=== PATIENT | female | born 1985 | race Caucasian/White ===

== ENCOUNTER 2017-08-06 18:32 | Emergency (ER) | payer MEDICAID ==
[2017-08-06 21:20] VITALS: BP 131/72
== END 2017-08-06 21:28 | disposition home or self-care (01) ==
LOC: ED 18:32
DX: R51 Headache (principal); R11.0 Nausea
CPT/HCPCS: J1885; J8597; Q0162; Q0163

== ENCOUNTER 2017-12-07 11:56 | Emergency (ER) | payer MEDICAID ==
[~2017-12-07] VITALS: Ht 157.5 cm; Wt 76.7 kg
[2017-12-07 13:24] VITALS: BP 129/88
== END 2017-12-07 13:24 | disposition home or self-care (01) ==
LOC: ED 11:56
DX: G44.209 Tension-type headache, unspecified, not intractable (principal); I10 Essential (primary) hypertension
CPT/HCPCS: 20552; J2001

== ENCOUNTER 2018-03-25 22:36 | Emergency (ER) | payer MEDICAID ==
[~2018-03-25] VITALS: Ht 157.5 cm; Wt 73.9 kg
[2018-03-25 22:47] VITALS: Ht 157.5 cm; Wt 73.9 kg
[2018-03-26 00:21] VITALS: BP 127/106
== END 2018-03-26 00:21 | disposition home or self-care (01) ==
LOC: ED 22:36
DX: G43.909 Migraine, unspecified, not intractable, without status migrainosus (principal)
CPT/HCPCS: J1885; J2765

== ENCOUNTER 2018-10-14 11:10 | Emergency (ER) | payer OTHER ==
[~2018-10-14] VITALS: Ht 157.5 cm; Wt 75.3 kg
[2018-10-14 11:16] VITALS: Ht 157.5 cm; Wt 75.3 kg
[2018-10-14 13:15] VITALS: BP 131/80
== END 2018-10-14 13:15 | disposition home or self-care (01) ==
LOC: ED 11:10
DX: G43.909 Migraine, unspecified, not intractable, without status migrainosus (principal); R11.0 Nausea; H53.149 Visual discomfort, unspecified
CPT/HCPCS: J1885; J2765

== ENCOUNTER 2019-01-13 23:56 | Emergency (ER) | payer OTHER ==
[~2019-01-13] VITALS: Ht 157.5 cm; Wt 71.7 kg
[2019-01-14 00:03] VITALS: Ht 157.5 cm; Wt 71.7 kg
[2019-01-14 01:22] LABS: BASOPHIL % 0.2 % (0-2); PLATELET COUNT 328 x10^3mcL (130-400); RED CELL DISTRIBUTION WIDTH 13.3 % (11.5-14.5)
[2019-01-14 01:24] LABS: CALCIUM 8.6 mg/dL (8.5-10.1); CARBON DIOXIDE 27.3 mmol/L (21-32); CHLORIDE SERUM 105 mmol/L (98-107); CREATININE SERUM 0.7 mg/dL (0.6-1.0); GFR1 > 60 mL/min; GLUCOSE SERUM 127 mg/dL (74-106); POTASSIUM SERUM 3.6 mmol/L (3.5-5.1); SODIUM SERUM 139 mmol/L (136-145)
[2019-01-14 01:25] LABS: T3 TOTAL 0.96 ng/mL
[2019-01-14 01:26] LABS: AMPHETAMINE QUAL UR NONE DETECTED (See below)
[2019-01-14 01:29] LABS: ALBUMIN 3.7 g/dL (3.4-5.0); ALKALINE PHOSPHATASE 101 U/L (46-116); ALT/SGPT 41 U/L (14-59); AST/SGOT 18 U/L (15-37); BILIRUBIN TOTAL 0.12 mg/dL (0.20-1.00); TOTAL PROTEIN, SERUM 7.6 g/dL (6.4-8.2)
[2019-01-14 01:51] LABS: FREE T4 0.84 ng/dL (0.76-1.46); FREE THYROXINE INDEX 2.8 ug/dL (1.4-4.5); T4(THYROXINE) 8.1 ug/dL (4.7-13.3)
[2019-01-14 05:06] VITALS: BP 128/78
== END 2019-01-14 05:06 | disposition home or self-care (01) ==
LOC: ED 23:56
PROVIDERS: Emergency Medicine
DX: R00.2 Palpitations (principal); R55 Syncope and collapse; R42 Dizziness and giddiness; G43.909 Migraine, unspecified, not intractable, without status migrainosus
CPT/HCPCS: 36415; 84439; 85378; Q0092

== ENCOUNTER 2019-01-14 20:24 | Emergency (ER) | payer OTHER ==
[~2019-01-14] VITALS: Ht 157.5 cm; Wt 71.7 kg
[2019-01-14 20:42] VITALS: Ht 157.5 cm; Wt 71.7 kg
[2019-01-14 22:20] LABS: CALCIUM 8.8 mg/dL (8.5-10.1); CHLORIDE SERUM 106 mmol/L (98-107); CREATININE SERUM 0.6 mg/dL (0.6-1.0); GFR1 > 60 mL/min; GLUCOSE SERUM 85 mg/dL (74-106); POTASSIUM SERUM 3.6 mmol/L (3.5-5.1); SODIUM SERUM 142 mmol/L (136-145)
[2019-01-14 22:24] LABS: ALBUMIN 3.6 g/dL (3.4-5.0); ALKALINE PHOSPHATASE 112 U/L (46-116); ALT/SGPT 34 U/L (14-59); AST/SGOT 19 U/L (15-37); BILIRUBIN TOTAL 0.1 mg/dL (0.20-1.00); MAGNESIUM 2.1 mg/dL (1.8-2.4); TOTAL PROTEIN, SERUM 7.3 g/dL (6.4-8.2)
[2019-01-14 23:55] VITALS: BP 127/83
== END 2019-01-14 23:55 | disposition home or self-care (01) ==
LOC: ED 20:24
PROVIDERS: Emergency Medicine
DX: R07.89 Other chest pain (principal); R00.2 Palpitations; G43.909 Migraine, unspecified, not intractable, without status migrainosus
CPT/HCPCS: 36415

== ENCOUNTER 2019-01-18 14:47 | Emergency (ER) | payer OTHER ==
[~2019-01-18] VITALS: Ht 157.5 cm; Wt 71.7 kg
[2019-01-18 14:55] VITALS: Ht 157.5 cm; Wt 71.7 kg
[2019-01-18 16:38] VITALS: BP 128/65
== END 2019-01-18 16:38 | disposition home or self-care (01) ==
LOC: ED 14:47
DX: G43.909 Migraine, unspecified, not intractable, without status migrainosus (principal); R05 Cough
CPT/HCPCS: J1885

== ENCOUNTER 2019-07-21 12:10 | Emergency (ER) | payer OTHER ==
[~2019-07-21] VITALS: Ht 160 cm; Wt 80.3 kg
[2019-07-21 12:20] VITALS: Ht 160 cm; Wt 80.3 kg
[2019-07-21 14:27] VITALS: BP 110/65
== END 2019-07-21 14:27 | disposition home or self-care (01) ==
LOC: ED 12:10
DX: S39.012A Strain of muscle, fascia and tendon of lower back, initial encounter (principal); G43.909 Migraine, unspecified, not intractable, without status migrainosus; X58.XXXA Exposure to other specified factors, initial encounter; Y93.89 Activity, other specified; Y92.89 Other specified places as the place of occurrence of the external cause; Y99.8 Other external cause status

== ENCOUNTER 2019-08-31 17:55 | Emergency (ER) | payer OTHER ==
[~2019-08-31] VITALS: Ht 157.5 cm; Wt 74.4 kg
[2019-08-31 18:05] VITALS: Ht 157.5 cm; Wt 74.4 kg
[2019-08-31 22:44] VITALS: BP 131/84
== END 2019-08-31 22:44 | disposition home or self-care (01) ==
LOC: ED 17:55
DX: R05 Cough (principal); R07.89 Other chest pain; G43.909 Migraine, unspecified, not intractable, without status migrainosus
CPT/HCPCS: J1200; J7613; Q0092

== ENCOUNTER 2020-05-25 03:33 | Emergency (ER) | payer OTHER ==
[~2020-05-25] VITALS: Ht 157.5 cm; Wt 82.6 kg
[2020-05-25 03:39] VITALS: Ht 157.5 cm; Wt 82.6 kg
[2020-05-25 04:27] LABS: BASOPHIL % 0.4 % (0-2); PLATELET COUNT 299 x10^3mcL (130-400); RED CELL DISTRIBUTION WIDTH 12.8 % (11.5-14.5)
[2020-05-25 04:41] LABS: CALCIUM 9.2 mg/dL (8.5-10.1); CARBON DIOXIDE 36.2 mmol/L (21-32); CHLORIDE SERUM 104 mmol/L (98-107); CREATININE SERUM 0.8 mg/dL (0.6-1.0); GFR1 > 60 mL/min; GLUCOSE SERUM 103 mg/dL (74-106); POTASSIUM SERUM 3.7 mmol/L (3.5-5.1); SODIUM SERUM 140 mmol/L (136-145)
[2020-05-25 04:47] LABS: ALBUMIN 3.8 g/dL (3.4-5.0); ALKALINE PHOSPHATASE 86 U/L (46-116); ALT/SGPT 31 U/L (14-59); AST/SGOT 18 U/L (15-37); BILIRUBIN TOTAL 0.33 mg/dL (0.20-1.00); TOTAL PROTEIN, SERUM 7.7 g/dL (6.4-8.2)
[2020-05-25 07:20] VITALS: BP 126/75
== END 2020-05-25 07:21 | disposition left against medical advice (07) ==
LOC: ED 03:33
PROVIDERS: Emergency Medicine
DX: K21.9 Gastro-esophageal reflux disease without esophagitis (principal); R11.0 Nausea; G43.909 Migraine, unspecified, not intractable, without status migrainosus
CPT/HCPCS: C9113; J2405; J2765; J7030